=== PATIENT | female | born 1975 | race Caucasian/White ===

== ENCOUNTER 2019-04-03 00:15 | Emergency (ER) | payer SELFPAY ==
[2019-04-04] MEDS ORDERED: Nicotine 14 MG PATCH TOP SCH (08:00)
[2019-04-04] MEDS ORDERED: guaiFENesin ER 600 MG TAB PO SCH (10:15)
== END 2019-04-07 02:31 ==
LOC: ERS 00:15
DX: R45.851 Suicidal ideations (principal); D64.9 Anemia, unspecified; F43.10 Post-traumatic stress disorder, unspecified; F17.210 Nicotine dependence, cigarettes, uncomplicated
CPT/HCPCS: 36415; 80307; 99285

== ENCOUNTER 2019-06-08 12:35 | Inpatient (IN) | payer SELFPAY ==
[2019-06-08 13:43] LABS: Lactic Acid 0.7 mmol/L (0.5-2.2)
[2019-06-08 14:05] LABS: HIV (1/2) Antibody/Antigen Non-Reactive (NonReactive)
[2019-06-08] MEDS ORDERED: Senokot S 8.6-50 MG TAB PO PRN (15:25)
[2019-06-08] MEDS ORDERED: Guaifenesin DM 100-10/5 ML UDCUP PO PRN (15:25)
[2019-06-08] MEDS ORDERED: Acetaminophen 325 MG TAB PO PRN (15:25)
[2019-06-08] MEDS ORDERED: Bisacodyl 10 MG SUPP PR PRN (15:25)
[2019-06-08] MEDS: Cefepime 1 GM in Sodium Chloride 0.9% 100 ML IVPB SCH (17:25)
[2019-06-08] MEDS: Levofloxacin 750 mg/D5W 500 MG in Premix Bag 1 BAG IVPB SCH (17:26)
[2019-06-08] MEDS: methylPREDNISolone Sod Succ 40 MG VIAL IVP SCH (17:27)
[2019-06-08 17:36] VITALS: BMI 27.6
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
[2019-06-08 19:30] LABS: Syphilis Antibody Nonreactive (Nonreactive); Syphilis Antibody Index 0.05 S/CO (<1.00 Non-Reactive)
[2019-06-08 19:32] LABS: HBCM Index 0.12 S/CO (0-0.79); HBSAg Index 0.19 S/CO (0-0.99); Hep A IgM AB Non-Reactive (NonReactive); Hep A IgM S/CO 0.14 S/CO (0-0.79); Hep B Surf Ag Non-Reactive S/CO (NonReactive); Hepatitis B Core IgM Abs Non-Reactive (NonReactive)
[2019-06-08 19:33] LABS: Hep C IgG Ab Reflex HepC Qnt (NonReactive)
--- NOTE | 2019-06-08 19:47 | HP ---
REASON FOR ADMISSION: Bilateral pneumonia, possibly ARDS; history of IV drug abuse in the past; chronic anemia; metabolic acidosis. HISTORY OF PRESENTING ILLNESS: The patient gives history of having strep throat , diagnosed 3 months back in [place]. She took antibiotics for that, but she says that she had laryngitis then and never got her voice back completely. A month and a half back, the patient developed shortness of breath and was saturating 82% per patient. She was given prednisone for suspected COPD flare-up. This was in [place] per patient. She was also told that she had oral thrush in [facility] and was given 10 days of Augmentin and Magic mouthwash for the same. No antifungal was given per patient. The patient developed shortness of breath from yesterday and was running fever of 102. She has evening rise of fevers. This is associated with chills and rigors in the evenings. The patient had been to group home for duration of 1 year and a second episode of 6 months. She has been off group home for last 4 years now. She was homeless for few days in [place], 5 weeks back. She has never stayed in any shelters. The patient finally moved from [place] to [place] area to stay with her mom from last 3 months. She was using IV drugs including meth, cocaine, and anything she got hands-on. She has been doing so for the last 15 years or so now. PAST MEDICAL AND SURGICAL HISTORY: Chronic anemia, tubal ligation, depression, PTSD secondary to her child dying on her when the baby was 1-month-old due to suffocation, which was unintentional per the patient. CURRENT MEDICATIONS: Takes Prozac 40 mg daily, risperidone 0.5 mg 2 times daily. ALLERGIES: NO KNOWN DRUG ALLERGIES. PERSONAL HISTORY: She has been smoking one pack a day for last 25 years now. Alcohol abuse with history of IV drug abuse, which she says stopped 3 months ago. She has used all kinds of drugs whichever she could lay or hands on and they were mostly IV. Has 3 children, 23-year-old, 12-year-old, and 13-year-old. The patient is . FAMILY HISTORY: Mother is healthy. Father of alcohol-related complications and was a heavy alcohol abuser. He at the age of 62 years. A brother of colon cancer at the age of 34 years with multiple metastases. CODE STATUS: Full. REVIEW OF SYSTEMS: CONSTITUTIONAL: Negative for weight loss or gain, ability to conduct usual activities. SKIN: Negative for rash, itching. EYES: Negative for double vision, pain. ENT/MOUTH: Negative for nose bleeding, neck stiffness, pain, tenderness. CARDIOVASCULAR: Negative for palpitations, dyspnea on exertion, orthopnea. RESPIRATORY: Negative for shortness of breath, wheezing, cough, hemoptysis, fever or night sweats. GASTROINTESTINAL: Negative for poor appetite, abdominal pain, heartburn, nausea , vomiting, constipation, or diarrhea. GENITOURINARY: Negative for urgency, frequency, dysuria, nocturia. MUSCULOSKELETAL: Negative for pain, swelling. NEUROLOGIC/PSYCHIATRIC: Negative for anxiety, depression. ALLERGY/IMMUNOLOGIC: Negative for skin rash, bleeding tendency. PHYSICAL EXAMINATION: GENERAL: The patient is a 43-year-old female, who is currently not in any acute distress. VITAL SIGNS: Blood pressure 136/70, pulse 104 per minute, respiratory rate 20 per minute, temperature 99.3 degrees Fahrenheit, saturating 98% on 2 L nasal cannula. NECK: Supple. No elevated JVD. HEENT: Eyes; extraocular muscles intact. Pupils are reacting to light. Oral cavity, mucous membranes are dry. No exudates or congestion. No oral thrush seen. CARDIOVASCULAR: S1 and S2 heard. Regular rhythm. RESPIRATORY: Air entry, 1+ bilateral. Scattered rales plus bilateral. ABDOMEN: Soft. Bowel sounds heard. No tenderness, rigidity, or guarding. EXTREMITIES: No peripheral edema or calf tenderness. VASCULAR: Peripheral pulses, 1+ bilateral. No ischemic ulcerations or gangrene. CENTRAL NERVOUS SYSTEM: No gross focal deficits noted. The patient is alert, awake, and oriented well. PSYCHIATRIC: The patient's mood is euthymic. No hallucinations or delusions. DIAGNOSTIC AND LABORATORY DATA: A CT chest done shows patchy ground-glass opacities bilaterally. Suggestive of multifocal pneumonia. LDH is elevated at 471. Albumin 3.5. BNP 53. HIV-1 and HIV-2 antigen and antibodies are nonreactive. Liver enzymes are within normal limits. Total bilirubin 0.3, serum bicarb 19, BUN 5, creatinine 0.6, serum glucose 91, lactic acid 0.9. WBC 11, hemoglobin and hematocrit 8 and 28, platelet count 297, MCV is 71 with 85% neutrophils. EKG done shows normal sinus rhythm at 87 beats per minute. TX interval is 124 milliseconds, QRS duration is 80 milliseconds, corrected QT is 483 milliseconds. CLINICAL IMPRESSION AND PLAN: The patient will be admitted to medical floor for multifocal pneumonia in both lungs. She has had ongoing history of upper respiratory symptoms for last 3 months with progressive shortness of breath for nearly a month and a half now. Her HIV test is negative. She has used IV drugs for nearly 15 years and has smoked for more than 25 years now. She was also abusing alcohol in the past. The patient states she has been clean for last 3 months now and has come to stay with her mom. She will be on cefepime, Levaquin, and vancomycin for now. We will also place on Solu-Medrol and DuoNeb. We will continue Prozac and Risperdal as before. Echo with 2D Doppler to rule out endocarditis. The patient likely has septic emboli in both lungs from possible IV drug abuse. A QuantiFERON test, acute hepatitis panel. I have consulted Dr. Amor for Pulmonology. If the patient were to go into respiratory distress, she needs to be transferred to ICU and likely intubation. Currently, she is saturating well on 2 L nasal cannula and her vitals are stable at present. She will be closely monitored on medical floor. Job ID: [id number] [facility]
[2019-06-08] MEDS: Vancomycin HCl 1.25 GM in Sodium Chloride 0.9% 250 ML 250 ML IVPB SCH (20:48)
[2019-06-08] MEDS: risperiDONE 0.25 MG TAB PO SCH (20:52)
[2019-06-08] MEDS: Famotidine 20 MG TAB PO SCH (20:52)
[2019-06-09] MEDS: methylPREDNISolone Sod Succ 40 MG VIAL IVP SCH ×4 (00:08→17:13)
[2019-06-09] MEDS: Cefepime 1 GM in Sodium Chloride 0.9% 100 ML IVPB SCH ×2 (04:23→16:00)
[2019-06-09 06:35] LABS: Anion Gap 15 mmol/L (10-20); BUN (Urea Nitrogen) 8 mg/dL (7.0-18.7); Calc. Creatinine Clearance 118 mL/min (70-130); Calcium 8.8 mg/dL (7.8-10.44); Carbon Dioxide 16 mmol/L (22-29); Chloride 110 mmol/L (98-107); Estimated GFR-MDRD Greater than 90; Glucose 172 mg/dL (70-105); Potassium 4.1 mmol/L (3.5-5.1); Sodium 137 mmol/L (136-145)
[2019-06-09] MEDS: Lactated Ringer's 1,000 ML IV SCH ×2 (08:51→21:14)
[2019-06-09] MEDS: Enoxaparin Sodium 40 MG/0.4 ML SYRINGE SC SCH (08:52)
[2019-06-09] MEDS: risperiDONE 0.25 MG TAB PO SCH ×2 (08:52→21:13)
[2019-06-09] MEDS: FLUoxetine HCl 20 MG CAP PO SCH (08:53)
[2019-06-09] MEDS: Famotidine 20 MG TAB PO SCH ×2 (08:53→21:13)
[2019-06-09] MEDS: Vancomycin HCl 1.25 GM in Sodium Chloride 0.9% 250 ML 250 ML IVPB SCH ×2 (09:28→21:05)
[2019-06-09 09:30] LABS: #Lymphocytes 0.4 thou/uL (1.20-3.40); #Monocytes 0.1 thou/uL (0.11-0.59); #Neutrophils 7.3 thou/uL (1.40-6.50); %Eosinophils 0.2 % (0.0-10.0); %Monocytes 0.8 % (0.0-10.0); Hemoglobin 7.9 g/dL (12.0-16.0); Mean Corpuscular HGB CONC 30.8 g/dL (32.0-36.0); Mean Corpuscular Hemoglobin 22.3 pg (27.0-31.0); Mean Corpuscular Volume 72.3 fL (78.0-98.0); Mean Platelet Volume 7.1 fL (7.4-10.4); Platelet Count 337 thou/uL (130-400); RBC Distribution Width 19.6 % (11.5-14.5); Red Blood Cell (RBC) Count 3.54 mill/uL (4.20-5.40); White Blood Cell (WBC) Count 7.8 thou/uL (4.8-10.8)
[2019-06-09 09:56] LABS: Hypochromia SLIGHT = 6-15 cells (100X) (0-5/hpf); MDiff Complete? YES; Microcytosis SLIGHT = 6-15 cells (100X) (0-5/hpf); Ovalocytes SLIGHT = 2-5 cells (100X) (0-1/hpf); Platelet Morphology Comment Appears Adequate; Polychromasia SLIGHT = 2-3 cells (100X) (0-2/hpf); Schistocytes SLIGHT = 2-5 cells (100X) (0-1/hpf); Target Cells SLIGHT = 2-5 cells (100X) (0-1/hpf); Tear Drops SLIGHT = 2-5 cells (100X) (0-1/hpf)
--- NOTE | 2019-06-09 11:57 | PRG ---
DATE OF SERVICE: 06/09/2019 SUBJECTIVE: Adrian Garcia is a 43-year-old female, who is better. OBJECTIVE: VITAL SIGNS: Temperature 97, pulse 77, respirations 18, sats 93% on room air, and blood pressure 103/65. CHEST: No wheezing or crackles. CARDIAC: Normal S1 and S2. No gallop. ABDOMEN: No mass. LABORATORY DATA: White count 7000, H and H 7 and 25, platelet count 337. Lytes are normal. HIV was negative. Hepatitis C antibody was elevated. IMPRESSION: 1. Hep C, no evidence of HIV, bilateral pulmonary infiltrates, atypical pneumonia, rule out TB, fungus. 2. IV meth abuse. PLAN: I agree with antibiotic, steroids, neb treatment. Deescalate antibiotics in the next 24 to 48 hours. We will follow. Job ID: [id number]
--- NOTE | 2019-06-09 13:58 | PDOC.HOSPP ---
- Subjective Encounter Date: 06/09/19 Encounter Time: 10:56 Subjective: 43 y/o female with IVDU admitted with SOB and fever associated with chills and rigor. Impression of sepsis was made and she was started on broadspectrum antibiotics. Reports feeling better. No nausea or vomiting. - Objective Vital Signs & Weight: Vital Signs (12 hours) Temp Pulse Resp BP Pulse Ox 06/09/19 11:46 97.6 F 95 16 121/80 94 L 06/09/19 10:59 90 16 96 06/09/19 08:00 93 L 06/09/19 07:46 97.7 F 77 18 103/65 93 L 06/09/19 07:00 95 06/09/19 06:58 77 20 95 06/09/19 04:00 97.9 F 92 20 115/77 94 L Weight Weight 145 lb 15.136 oz I&O: 06/08/19 06/09/19 06/10/19 06:59 06:59 06:59 Intake Total 1700 480 Balance 1700 480 Result Diagrams: 06/09/19 09:06 06/09/19 05:42 Hospitalist ROS - Medication Medications: Active Medications Generic Name Dose Route Start Last Admin Trade Name Freq PRN Reason Stop Dose Admin Acetaminophen 650 mg 06/08/19 15:25 06/08/19 17:28 Tylenol PO 650 mg Q4H PRN Administration Headache/Fever/Mild Pain (1-3) Albuterol/Ipratropium 3 ml 06/08/19 19:00 06/09/19 10:59 Duoneb NEB 3 ml [id number] LD Administration Albuterol/Ipratropium 3 ml 06/08/19 19:00 06/09/19 11:01 Duoneb NEB Not Given [id number] LD Enoxaparin Sodium 40 mg 06/09/19 09:00 06/09/19 08:52 Lovenox SC 40 mg 0900 LD Administration Famotidine 20 mg 06/08/19 21:00 06/09/19 08:53 Pepcid PO 20 mg BID LD Administration Fluoxetine HCl 40 mg 06/09/19 09:00 06/09/19 08:53 Prozac PO 40 mg DAILY LD Administration Cefepime HCl 1 gm/ Sodium 100 mls @ 200 mls/hr 06/08/19 16:00 11/06/19 04:23 Chloride IVPB 100 mls 0400,1600 LD Administration Levofloxacin 500 mg/ Device 100 mls @ 100 mls/hr 06/08/19 17:00 06/08/19 17: 26 IVPB 100 mls 1700 LD Administration Vancomycin HCl 1.25 gm/ Sodium 250 mls @ 166.667 mls/hr 06/08/19 21:00 09:28 Chloride IVPB 250 mls Q12HR LD Administration Lactated Ringer's 1,000 mls @ 75 mls/hr 06/09/19 08:45 06/09/19 08:51 Lactated Ringer's IV 1,000 mls .[id number] LD Administration Methylprednisolone Sodium Succinate 40 mg 06/08/19 18:00 06/09/19 12:11 Solu-Medrol IVP 40 mg Q6HR LD Administration Risperidone 0.5 mg 06/08/19 21:00 06/09/19 08:52 Risperidone PO 0.5 mg BID LD Administration - Exam General Appearance: awake alert Eye: anicteric sclera ENT: normocephalic atraumatic Neck: supple, symmetric, no JVD Heart: RRR Respiratory: no wheezes, no ronchi Respiratory - other findings: fair air entry with few scattered crackles Gastrointestinal: soft, non-tender, non-distended, normal bowel sounds Extremities: no cyanosis, no edema Neurological: cranial nerve grossly intact, no focal deficits Psychiatric: normal affect, A&O x 3 Hosp A/P (1) Sepsis Code(s): A41.9 - SEPSIS, UNSPECIFIED ORGANISM Status: Acute (2) Bilateral pneumonia Code(s): J18.9 - PNEUMONIA, UNSPECIFIED ORGANISM Status: Acute (3) IVDU (intravenous drug user) Code(s): F19.90 - OTHER PSYCHOACTIVE SUBSTANCE USE, UNSPECIFIED, UNCOMPLICATED Status: Acute (4) Depression Code(s): F32.9 - MAJOR DEPRESSIVE DISORDER, SINGLE EPISODE, UNSPECIFIED Status : Acute (5) Anemia Code(s): D64.9 - ANEMIA, UNSPECIFIED Status: Acute (6) Tobacco abuse disorder Code(s): Z72.0 - TOBACCO USE Status: Acute (7) Hepatitis C infection Code(s): B19.20 - UNSPECIFIED VIRAL HEPATITIS C WITHOUT HEPATIC COMA Status: Acute (8) Metabolic acidosis Code(s): E87.2 - ACIDOSIS Status: Acute - Plan Continue broad spectrum antibiotics. substitute NS with LR due to worsening acidosis Await cultures as well as quantiferon gold test. Start lidocaine patch for back pain.
[2019-06-09] MEDS: Levofloxacin 750 mg/D5W 500 MG in Premix Bag 1 BAG IVPB SCH (16:36)
[2019-06-09] MEDS: Lidocaine 5% Patch TD SCH (17:12)
[2019-06-09] MEDS ORDERED: FLU VACC QS2019-20(6MOS UP)/PF 60 MCG/0.5 ML SYRINGE IM ONE (18:15)
[2019-06-10] MEDS: methylPREDNISolone Sod Succ 40 MG VIAL IVP SCH ×2 (00:07→05:25)
[2019-06-10] MEDS: Cefepime 1 GM in Sodium Chloride 0.9% 100 ML IVPB SCH (03:45)
[2019-06-10] MEDS: Lidocaine Patch Removal 1 EACH TOP SCH (03:48)
[2019-06-10] MEDS: risperiDONE 0.25 MG TAB PO SCH ×2 (08:01→20:06)
[2019-06-10] MEDS: Famotidine 20 MG TAB PO SCH ×2 (08:01→20:06)
[2019-06-10] MEDS: FLUoxetine HCl 20 MG CAP PO SCH (08:01)
[2019-06-10] MEDS: Enoxaparin Sodium 40 MG/0.4 ML SYRINGE SC SCH (08:02)
[2019-06-10 08:43] LABS: Vancomycin, Trough 8.8 ug/mL
[2019-06-10 09:01] LABS: Anion Gap 16 mmol/L (10-20); BUN (Urea Nitrogen) 13 mg/dL (7.0-18.7); Calc. Creatinine Clearance 108 mL/min (70-130); Carbon Dioxide 16 mmol/L (22-29); Chloride 111 mmol/L (98-107); Estimated GFR-MDRD Greater than 90; Glucose 224 mg/dL (70-105); Potassium 3.7 mmol/L (3.5-5.1); Sodium 139 mmol/L (136-145)
[2019-06-10] MEDS: Lactated Ringer's 1,000 ML IV SCH (09:17)
[2019-06-10 09:20] LABS: #Lymphocytes 0.6 thou/uL (1.20-3.40); #Monocytes 0.3 thou/uL (0.11-0.59); #Neutrophils 13.5 thou/uL (1.40-6.50); %Monocytes 1.9 % (0.0-10.0); %Neutrophils 94.1 % (42.0-75.0); Hemoglobin 7.6 g/dL (12.0-16.0); Mean Corpuscular HGB CONC 30.5 g/dL (32.0-36.0); Mean Corpuscular Hemoglobin 22.1 pg (27.0-31.0); Mean Corpuscular Volume 72.4 fL (78.0-98.0); Mean Platelet Volume 7.2 fL (7.4-10.4); Platelet Count 374 thou/uL (130-400); RBC Distribution Width 19.9 % (11.5-14.5); Red Blood Cell (RBC) Count 3.42 mill/uL (4.20-5.40); White Blood Cell (WBC) Count 14.3 thou/uL (4.8-10.8)
[2019-06-10] MEDS: Vancomycin HCl 1.25 GM in Sodium Chloride 0.9% 250 ML 250 ML IVPB SCH (09:21)
[2019-06-10] MEDS ORDERED: Vancomycin HCl 1.25 GM in Sodium Chloride 0.9% 250 ML 250 ML IVPB SCH (10:00)
[2019-06-10] MEDS ORDERED: Doxycycline 100 MG CAP PO SCH (10:00)
--- NOTE | 2019-06-10 10:13 | RAD ---
RADIOGRAPH CHEST 2 VIEW: DATE: 06/10/2019 TIME: 10:04 AM HISTORY: 43-year-old female with diagnosis of "pneumonia" COMPARISON: 06/08/2019 FINDINGS: There has been significant interval improvement in the diffuse interstitial infiltrates, especially i n the lower lung zones, where the infiltrates were confluent into airspace opacities. Mild prominence of interstitial markings remain. No pneumothorax, pleural effusion, or new consolidation. Cardiac size at upper limits of normal. IMPRESSION: Interval significant improvement in the pulmonary opacities, which were either pulmonary edema or pne umonia.
--- NOTE | 2019-06-10 14:10 | PDOC.HOSPP ---
- Subjective Encounter Date: 06/10/19 Encounter Time: 14:07 Subjective: 43 y/o female with IVDU admitted with SOB and fever associated with chills and rigor. Impression of sepsis was made and she was started on broad spectrum antibiotics. Reports feeling better. No nausea or vomiting. - Objective Vital Signs & Weight: Vital Signs (12 hours) Temp Pulse Resp BP Pulse Ox 06/10/19 13:47 55 L 16 96 06/10/19 08:00 97.5 F L 55 L 18 135/85 96 06/10/19 07:19 97 06/10/19 07:17 67 20 97 06/10/19 04:00 97.6 F 89 18 124/76 96 Weight Weight 145 lb 15.136 oz I&O: 06/09/19 06/10/19 06/11/19 06:59 06:59 06:59 Intake Total 1700 4670 Balance 1700 4670 Result Diagrams: 06/10/19 09:04 06/10/19 08:29 Hospitalist ROS - Medication Medications: Active Medications Generic Name Dose Route Start Last Admin Trade Name Freq PRN Reason Stop Dose Admin Acetaminophen 650 mg 06/08/19 15:25 06/08/19 17:28 Tylenol PO 650 mg Q4H PRN Administration Headache/Fever/Mild Pain (1-3) Albuterol/Ipratropium 3 ml 06/08/19 19:00 06/10/19 13:47 Duoneb NEB 3 ml [id number] DL Administration Enoxaparin Sodium 40 mg 06/09/19 09:00 06/10/19 08:02 Lovenox SC 40 mg 0900 LD Administration Famotidine 20 mg 06/08/19 21:00 06/10/19 08:01 Pepcid PO 20 mg BID LD Administration Fluoxetine HCl 40 mg 06/09/19 09:00 06/10/19 08:01 Prozac PO 40 mg DAILY LD Administration Vancomycin HCl 1.25 gm/ Sodium 250 mls @ 166.667 mls/hr 06/10/19 10:00 10:06 Chloride IVPB Not Given 0200,1000,1800 LD Lidocaine 1 patch 06/09/19 15:00 06/09/19 17:12 Lidoderm 5% Patch TD 1 patch 1500 LD Administration Miscellaneous Medication 1 each 06/10/19 03:00 06/10/19 03:48 Lidocaine Patch Removal TOP 1 each 0300 LD Administration Risperidone 0.5 mg 06/08/19 21:00 06/10/19 08:01 Risperidone PO 0.5 mg BID LD Administration - Exam General Appearance: awake alert Eye: PERRL, anicteric sclera ENT: normocephalic atraumatic Neck: supple, symmetric, no JVD Heart: RRR Respiratory: no wheezes, no ronchi, normal chest expansion Respiratory - other findings: fair air entry with transmitted sounds Gastrointestinal: soft, non-tender, non-distended, normal bowel sounds Extremities: no cyanosis, no edema Skin - other findings: scattered tattoes noted Neurological: cranial nerve grossly intact, no focal deficits Psychiatric: normal affect, A&O x 3 Hosp A/P (1) Sepsis Code(s): A41.9 - SEPSIS, UNSPECIFIED ORGANISM Status: Acute (2) Bilateral pneumonia Code(s): J18.9 - PNEUMONIA, UNSPECIFIED ORGANISM Status: Acute (3) IVDU (intravenous drug user) Code(s): F19.90 - OTHER PSYCHOACTIVE SUBSTANCE USE, UNSPECIFIED, UNCOMPLICATED Status: Acute (4) Depression Code(s): F32.9 - MAJOR DEPRESSIVE DISORDER, SINGLE EPISODE, UNSPECIFIED Status : Acute (5) Anemia Code(s): D64.9 - ANEMIA, UNSPECIFIED Status: Acute (6) Tobacco abuse disorder Code(s): Z72.0 - TOBACCO USE Status: Acute (7) Hepatitis C infection Code(s): B19.20 - UNSPECIFIED VIRAL HEPATITIS C WITHOUT HEPATIC COMA Status: Acute (8) Metabolic acidosis Code(s): E87.2 - ACIDOSIS Status: Acute (9) Rhinovirus infection Code(s): B34.8 - OTHER VIRAL INFECTIONS OF UNSPECIFIED SITE Status: Acute - Plan Antibiotic transition to oral by Pulmonary Start alkali therapy for metabolic acidosis Await cultures as well as quantiferon gold test. Bronchodilators and steroid to continue Repeat Renal function and CBC as well as CRp in the am.
[2019-06-10] MEDS: Sodium Bicarbonate Tab 325 MG TAB PO SCH ×2 (14:57→20:06)
[2019-06-10] MEDS: Lidocaine 5% Patch TD SCH (15:01)
[2019-06-10] MEDS: Doxycycline 100 MG CAP PO SCH (20:06)
[2019-06-11] MEDS: Lidocaine Patch Removal 1 EACH TOP SCH (03:43)
[2019-06-11 06:48] LABS: #Lymphocytes 2.1 thou/uL (1.20-3.40); #Monocytes 0.5 thou/uL (0.11-0.59); #Neutrophils 8.4 thou/uL (1.40-6.50); %Basophils 0.2 % (0.0-1.0); %Eosinophils 0.3 % (0.0-10.0); %Lymphocytes 18.9 % (21.0-51.0); %Monocytes 4.7 % (0.0-10.0); %Neutrophils 75.9 % (42.0-75.0); Hemoglobin 8.4 g/dL (12.0-16.0); Mean Corpuscular HGB CONC 31.2 g/dL (32.0-36.0); Mean Corpuscular Hemoglobin 22.3 pg (27.0-31.0); Mean Corpuscular Volume 71.4 fL (78.0-98.0); Mean Platelet Volume 7.3 fL (7.4-10.4); Platelet Count 411 thou/uL (130-400); RBC Distribution Width 19.9 % (11.5-14.5); Red Blood Cell (RBC) Count 3.75 mill/uL (4.20-5.40)
[2019-06-11 07:05] LABS: Anion Gap 13 mmol/L (10-20); BUN (Urea Nitrogen) 14 mg/dL (7.0-18.7); Calc. Creatinine Clearance 107 mL/min (70-130); Calcium 8.6 mg/dL (7.8-10.44); Carbon Dioxide 23 mmol/L (22-29); Chloride 106 mmol/L (98-107); Estimated GFR-MDRD 90; Glucose 96 mg/dL (70-105); Potassium 3.2 mmol/L (3.5-5.1); Sodium 139 mmol/L (136-145)
[2019-06-11] MEDS ORDERED: predniSONE 20 MG TAB PO SCH (08:00)
[2019-06-11] MEDS: Sodium Bicarbonate Tab 325 MG TAB PO SCH (08:53)
[2019-06-11] MEDS: FLUoxetine HCl 20 MG CAP PO SCH (08:54)
[2019-06-11] MEDS: Famotidine 20 MG TAB PO SCH (08:56)
[2019-06-11] MEDS: Doxycycline 100 MG CAP PO SCH (08:57)
[2019-06-11] MEDS: Enoxaparin Sodium 40 MG/0.4 ML SYRINGE SC SCH (08:57)
[2019-06-11] MEDS: Potassium Chloride 20 MEQ TAB PO SCH ×2 (08:59→13:11)
[2019-06-11] MEDS: risperiDONE 0.25 MG TAB PO SCH (09:11)
[2019-06-11] MEDS ORDERED: risperiDONE 0.25 MG TAB PO SCH (09:15)
--- NOTE | 2019-06-11 09:20 | PRG ---
DATE OF SERVICE: 06/11/2019 SUBJECTIVE: This morning, she is better. X-ray shows no infiltrates, much improved. OBJECTIVE: VITAL SIGNS: Temperature 98, pulse 77, respirations 16, saturations 98% on room air, blood pressure 139/84. LUNGS: No wheezing. No crackles. CARDIAC: Normal S1 and S2. No gallops. ABDOMEN: No masses. LABORATORY DATA: White count is 9000. Labs are unremarkable. Cultures are negative. ASSESSMENT: 1. Bilateral bronchopneumonia, probably atypical. 2. Substance abuse. PLAN: Pulmonary perdomo, she is pretty much ready to be discharged home. Follow up with the primary care physician. She is obviously told to refrain from shooting drugs Job ID: [id number]
[2019-06-11] MEDS ORDERED: Magnesium 2 GM/50 ML 2 GM in Premix Bag 1 BAG IVPB SCH (10:14)
[2019-06-11] MEDS: Magnesium Oxide 400 MG TAB PO SCH ×2 (10:55→13:11)
--- NOTE | 2019-06-11 11:27 | DIS ---
DATE OF ADMISSION: 06/08/2019 DATE OF DISCHARGE: 06/11/2019 PRIMARY CARE PHYSICIAN: [facility]. DISCHARGE DIAGNOSES: 1. Bilateral pneumonia. 2. Sepsis. 3. Hepatitis C infection. 4. Metabolic acidosis. 5. Rhinovirus infection. 6. Tobacco abuse disorder. 7. Hypokalemia. 8. Hypomagnesemia. 9. Microcytic anemia. 10. Tobacco abuse disorder. 11. Intravenous drug use. 12. Depression. 13. Post-traumatic stress disorder. CONSULT: Pulmonology. HOSPITAL COURSE: A 43-year-old female with known history of IV drug use, admitted with shortness of breath and fever associated with chills and rigor. Chest x-ray showed bilateral infiltrates, sounds consistent with pneumonia. The patient was started on broad-spectrum antibiotics. However, given history of IV drug use, there was some concern for atypical pneumonia as well as atypical infection and possible endocarditis, hence the patient was further evaluated with HIV, QuantiFERON Gold, hepatitis panel, and syphilis serology. The patient also had urine blood and sputum cultures. Hepatitis panel was unremarkable, except for positive hepatitis C infection, which was reflex to PCR quantitative, but result was pending at the time of discharge. HIV 1 and 2 were negative. Blood cultures were negative. QuantiFERON Gold was pending at the time of discharge. Syphilis serology was negative. Sputum culture grew normal julio césar and blood cultures were no growth at 48 hours. With antibiotics, the patient's condition improved and fever subsided and she was off oxygen. She remained stable and was subsequently discharged home. The patient was advised to follow up at [facility] for further referral to GI for treatment of hepatitis C infection. The patient also was advised to desist from the IV drug use. PHYSICAL EXAMINATION: VITAL SIGNS: Temperature 98.3, pulse 72, respiratory rate 16, SpO2 of 94 on room air, blood pressure 139/84. GENERAL: Comfortable female, in no distress. Afebrile. Anicteric. Acyanotic. HEENT: Normocephalic and atraumatic, with no obvious deformity. CARDIOVASCULAR: Regular rhythm and rate with normal heart sounds 1 and 2. RESPIRATORY: Good air entry bilaterally with few transmitted breath sounds. No rhonchi were appreciated. GI: Full, soft, nontender, nondistended with normal bowel sounds. EXTREMITIES: Grossly normal looking atraumatic with no edema or erythema. SKIN: Scattered tattoos seen all over the body. EXECUTIVE OFFICER: Conscious, alert, and oriented x3 with appropriate mental status. DISCHARGE CONDITION: Improved. DISCHARGE DISPOSITION: Home. DISCHARGE INSTRUCTIONS: Follow up at [facility]. The patient reportedly had an appointment today at 3 p.m. She was asked to keep the appointment. She will be referred to GI for further evaluation and treatment of hepatitis C infection. DISCHARGE MEDICATIONS: 1. Fluoxetine 40 mg p.o. daily. 2. Mirtazapine 1 to 2 mg of 7.5 mg tablets p.o. daily at bedtime p.r.n. for insomnia. 3. . 4. Risperidone 1 mg p.o. daily at bedtime. 5. Doxycycline 100 mg p.o. b.i.d. for 10 days. 6. Ferrous sulfate 325 mg p.o. b.i.d. 7. Magnesium oxide 400 mg p.o. b.i.d. This discharge took more than 30 minutes. Job ID: [id number]
[2019-06-11 12:09] LABS: Hep C PCR-Quant HCV Not Detected IU/mL (.)
[2019-06-11 13:20] VITALS: BP 145/92; TEMP 98.3
[2019-06-13 14:11] LABS: QuantiFERON-TB Gold Plus Indeterminate (Negative)
== END 2019-06-11 13:18 | disposition home or self-care (01) | DRG 871 ==
LOC: ERS 12:35 → T4-B 14:34
PROVIDERS: ADMIT Internal Medicine; ATTEND Internal Medicine
DX: A41.9 Sepsis, unspecified organism (principal); J18.0 Bronchopneumonia, unspecified organism; J96.00 Acute respiratory failure, unspecified whether with hypoxia or hypercapnia; E87.2 Acidosis; F32.9 Major depressive disorder, single episode, unspecified; F43.10 Post-traumatic stress disorder, unspecified; F17.200 Nicotine dependence, unspecified, uncomplicated; B19.20 Unspecified viral hepatitis C without hepatic coma; F15.10 Other stimulant abuse, uncomplicated; F19.90 Other psychoactive substance use, unspecified, uncomplicated; D64.9 Anemia, unspecified; B34.8 Other viral infections of unspecified site; E87.6 Hypokalemia; E83.42 Hypomagnesemia; Z98.51 Tubal ligation status; Z79.899 Other long term (current) drug therapy
CPT/HCPCS: 36415; 71046; 80048; 80074; 80202; 83605; 83615; 83735; 85025; 85652; 86140; 86480; 86780; 87070; 87102; 87116; 87205; 87206; 87389; 87522; 87633; 90471; 90732; 93306; 94640; 94760; 96360; G0009; J0692; J1650; J1956; J2920; J3370; J3490; J7050; J7512; J7620